=== PATIENT | female | born 1995 | race African-American/Black ===

== ENCOUNTER 2017-01-05 20:28 | Emergency (ER) | payer OTHER ==
[~2017-01-05] VITALS: Ht 157.5 cm; Wt 55.3 kg
[2017-01-05] MEDS ORDERED: COGENTIN0.5 M1 PO (20:40)
[2017-01-05] MEDS ORDERED: BIRTH CONTROL PILL PO (20:40)
[2017-01-05] MEDS ORDERED: SAPHRIS2.5 MG PO (20:40)
[2017-01-05 20:57] LABS: URINE SOURCE CLEAN CATCH
[2017-01-05 21:00] LABS: URINE APPEARANCE CLEAR; URINE BILIRUBIN NEG (NEG); URINE BLOOD NEG (NEG); URINE COLOR YELLOW; URINE GLUCOSE NEG (NORM); URINE KETONE TRACE (NEG); URINE LEUKOCYTE ESTERASE NEG (NEG); URINE NITRATE NEG (NEG); URINE PH 7.5 (5-8); URINE PROTEIN NEG (NEG); URINE SPECIFIC GRAVITY >=1.030 (1.003-1.035)
[2017-01-05 21:01] LABS: MICRO INDICATED? NO
[2017-01-05 21:11] LABS: BASOPHIL% 0.2 % (0-2.5); DIFF IND NO; EOSINOPHIL# 0.1 X10e3 (0-0.7); HEMATOCRIT 39.6 % (35.0-45.0); HEMOGLOBIN 13.3 gm/dL (12.0-16.0); LYMPHOCYTE# 2.6 X10e3 (1.0-3.5); LYMPHOCYTE% 28.7 % (17.0-45.0); MEAN CELL VOLUME 86.6 FL (83-96); MEAN CORPUSCULAR HEMOGLOBIN 29.2 PG (28-34); MEAN CORPUSCULAR HGB CONC 33.7 g/dL (30-36); MONOCYTE# 0.5 X10e3 (0-1.0); NEUTROPHIL# 5.9 X10e3 (1.5-7.1); NEUTROPHIL% 65.1 % (40-75); PLATELET COUNT 302 X10e3 (140-420); RED BLOOD COUNT 4.57 X10e (3.90-5.30); RED CELL DISTRIBUTION WIDTH 13.4 % (11.0-15.5); WHITE BLOOD COUNT 9.1 X10e3 (4.0-10.5)
[2017-01-05 21:27] LABS: ALBUMIN SERUM 4.4 g/dL (3.5-5.0); BILIRUBIN, DIRECT 0.1 mg/dL (0.0-0.2); BILIRUBIN,INDIRECT 0.2 mg/dL (0.0-0.9); BILIRUBIN,TOTAL 0.3 mg/dL (0.2-2.0); CALCIUM SERUM 9.5 mg/dL (8.4-10.2); CREATININE SERUM 0.9 mg/dL (0.6-1.4); GLOM FILT RATE Estimated 105.3 mL/min (>60); POTASSIUM 3.7 mmol/L (3.5-5.1); PROTEIN TOTAL SERUM 7.8 g/dL (6.0-8.3)
[2017-01-09 22:27] LABS: CHLAMYDIA TRACH Not Detected (Not Detected); N GONOR Not Detected (Not Detected)
== END 2017-01-05 21:57 | disposition home or self-care (01) ==
LOC: SED 20:28
PROVIDERS: Emergency Medicine
DX: R10.9 Unspecified abdominal pain (principal); R11.2 Nausea with vomiting, unspecified; K21.9 Gastro-esophageal reflux disease without esophagitis; Z88.8 Allergy status to other drugs, medicaments and biological substances; Z79.899 Other long term (current) drug therapy
CPT/HCPCS: 36415; 80048; 80076; 81003; 83690; 84703; 85025; 87491; 87591; 87808; 87905; 99284